=== PATIENT | female | born 1955 | race African-American/Black ===

== ENCOUNTER 2018-03-25 00:39 | Inpatient (IN) | payer MEDICARE, MEDICAID ==
[~2018-03-25] VITALS: Ht 160 cm; Wt 74.8 kg
[~2018-03-25 00:39] MED LIST: AMLO10TA80 PO; CALC1TAB17 PO; CLON0.2T PO; GLYB5TAB7 PO; IBUP-2030 PO; SULF-165 PO; TRIA115C TP
[2018-03-25] MEDS ORDERED: IPRATROPIUM BROMIDE (0.02%) 0.5MG/2.5ML NEB HHN STA (00:43)
[2018-03-25] MEDS ORDERED: METHYLPREDNISOLONE SOD SUCC 125 MG/2 ML VIAL IV STA (00:43)
[2018-03-25] MEDS ORDERED: ALBUTEROL (0.083%) 2.5MG/3ML NEB HHN STA (00:43)
[2018-03-25] MEDS ORDERED: LEVOFLOXACIN 750MG PREMIX 150 ML IV ONE (00:45)
[2018-03-25] MEDS ORDERED: NITROGLYCERIN OINT 1GM/INCH UDPKT TD ONE (00:45)
[2018-03-25] MEDS ORDERED: MAGNESIUM 2 G PREMIX 50 ML IV ONE (00:45)
[2018-03-25] MEDS ORDERED: ASPIRIN 81MG TABLET PO ONE (00:45)
[2018-03-25 01:45] LABS: BASOPHILS % 0.5 % (0.0-2.0); EOSINOPHILS % 1.3 % (0.0-5.0); HEMATOCRIT. 33.5 % (36.0-48.0); MEAN CORPUSCULAR HEMOGLOBIN 29.7 pg (28.0-32.0); MEAN CORPUSCULAR VOLUME 90.9 fL (81.0-99.0); MEAN PLATELET VOLUME 7.9 fl (7.4-10.4); NEUTROPHILS % 68.2 % (40.0-76.0); PLATELET 308 x1000/uL (130-400); RED BLOOD CELL COUNT 3.69 mill/uL (4.2-5.4); RED CELL DISTRIBUTION WIDTH 18.2 % (11.6-14.6)
[2018-03-25 01:49] LABS: INR 1.2
[2018-03-25 01:52] LABS: BG BASE EXCESS -5.2 mmol/L (-2.0-2.0); BG DEOXYHEMOGLOBIN 3.2 % (0.0-5.0); BG FRACTION INSPIRED OXYGEN 40; BG HCO3 ACT 19.1 mmol/L (22.0-26.0); BG METHEMOGLOBIN 0.2 % (0.0-1.5); BG OXYHEMOGLOBIN 94.6 % (94.0-97.0); BG PH 7.381 (7.350-7.450); BG SAMPLE SITE LEFT RADIAL; BG TOTAL HEMOGLOBIN 11.4 g/dL (12.0-18.0); BG VENT MODE MASK - BIPAP; BG VENT RATE 20 set
[2018-03-25 01:53] LABS: CHLORIDE 102 mEq/L (98-107)
[2018-03-25 01:57] LABS: ETHANOL BLOOD < 10 mg/dL
[2018-03-25] MEDS ORDERED: MORPHINE SULFATE 4 MG/ML CPJ (NOT FOR IM USE) IV PRN (08:00)
[2018-03-25] MEDS ORDERED: HYDROCODONE/ACETAMINOPHEN 5/325MG TABLET PO PRN (08:00)
[2018-03-25] MEDS ORDERED: ACETAMINOPHEN 650MG/20.3ML UDC GT PRN (08:00)
[2018-03-25] MEDS ORDERED: GUAIFENESIN 200MG/10ML SUGAR FREE UDC PO PRN (08:00)
[2018-03-25] MEDS ORDERED: IPRATROPIUM/ALBUTEROL 0.5-3(2.5)MG/3ML NEB INH PRN (08:00)
[2018-03-25] MEDS ORDERED: ACETAMINOPHEN 650MG SUPP PR PRN (08:00)
[2018-03-25] MEDS ORDERED: DIPHENHYDRAMINE 50MG/ML VIAL IV PRN (08:00)
[2018-03-25] MEDS ORDERED: MAGNESIUM/ALUMINUM HYDROXIDE/SIMETHICONE 30ML UDC PO PRN (08:00)
[2018-03-25] MEDS ORDERED: LEVOFLOXACIN 500MG PREMIX 100 ML IV SCH (08:00)
[2018-03-25] MEDS ORDERED: DOCUSATE SODIUM 100MG CAPSULE PO PRN (08:00)
[2018-03-25] MEDS ORDERED: ACETAMINOPHEN 325MG TABLET PO PRN (08:00)
[2018-03-25] MEDS ORDERED: ONDANSETRON HCL 4MG/2ML VIAL IV PRN (08:00)
[2018-03-25] MEDS ORDERED: NA PHOS,M-B/NA PHOS,DI-BA ENEMA 118ML PR PRN (08:00)
[2018-03-25] MEDS: CLONIDINE 0.1MG TABLET PO PRN (08:53)
[2018-03-25 10:10] VITALS: BP 179/78
[2018-03-25] MEDS ORDERED: ENOXAPARIN 40MG/0.4ML SYR SUBCUT SCH (10:19)
[2018-03-25] MEDS ORDERED: ASPI-1159 PO (10:27)
[2018-03-25] MEDS ORDERED: CINA30 PO (10:27)
[2018-03-25] MEDS ORDERED: SEVE800T8 PO (10:27)
[2018-03-25 10:30] VITALS: BP 179/78
[2018-03-25 12:00] VITALS: BP 173/81
[2018-03-25] MEDS: NIFEDIPINE XL 30MG TAB PO SCH (12:15)
[2018-03-25] MEDS: DOCUSATE SODIUM 100MG CAPSULE PO SCH ×2 (12:15→18:27)
[2018-03-25] MEDS: ENOXAPARIN 30MG/0.3ML SYR SUBCUT SCH (12:30)
[2018-03-25] MEDS: SEVELAMER CARBONATE 800 MG TABLET PO SCH ×2 (13:10→18:27)
[2018-03-25] MEDS: IPRATROPIUM/ALBUTEROL 0.5-3(2.5)MG/3ML NEB INH SCH ×2 (13:40→20:20)
[2018-03-25] MEDS: SODIUM CHLORIDE 0.9% INJ 3ML FLUSH IVF SCH ×2 (15:22→22:56)
[2018-03-25 16:00] VITALS: BP 166/70
[2018-03-25 20:00] VITALS: BP 178/95
[2018-03-25] MEDS: CLONIDINE 0.1MG TABLET PO SCH (22:56)
[2018-03-26] VITALS: BP 176/80
[2018-03-26] MEDS: IPRATROPIUM/ALBUTEROL 0.5-3(2.5)MG/3ML NEB INH SCH ×5 (02:15→21:45)
[2018-03-26 04:00] VITALS: BP 165/78
[2018-03-26] MEDS: CLONIDINE 0.1MG TABLET PO SCH (04:16)
[2018-03-26] MEDS: SODIUM CHLORIDE 0.9% INJ 3ML FLUSH IVF SCH ×3 (04:16→21:18)
[2018-03-26 07:49] LABS: BG BASE EXCESS -3.2 mmol/L (-2.0-2.0); BG CARBOXYHEMOGLOBIN 0.4 % (0.5-1.5); BG FRACTION INSPIRED OXYGEN 28; BG HCO3 ACT 21.1 mmol/L (22.0-26.0); BG METHEMOGLOBIN 0.3 % (0.0-1.5); BG OXYHEMOGLOBIN 95.3 % (94.0-97.0); BG PCO2 35.3 mmHg (35.0-45.0); BG PH 7.395 (7.350-7.450); BG PO2 85.5 mmHg (75.0-100.0); BG SAMPLE SITE LEFT BRACHIAL; BG VENT MODE NASAL CANNULA
[2018-03-26 08:00] VITALS: BP 154/74
[2018-03-26 08:03] LABS: CLARITY URINE CLOUDY (CLEAR); COLOR URINE YELLOW (YELLOW); KETONES URINE NEGATIVE (NEGATIVE); LEUKOCYTE ESTERASE URINE TRACE (NEGATIVE); NITRITE URINE NEGATIVE (NEGATIVE); OCCULT BLOOD URINE TRACE (NEGATIVE); PROTEIN URINE 3+ (NEGATIVE); SPECIFIC GRAVITY URINE 1.015 (1.005-1.030); UROBILINOGEN URINE 0.2 E.U./dL (0.2-1.0)
[2018-03-26 08:18] LABS: BASOPHILS % 0.4 % (0.0-2.0); EOSINOPHILS % 0.5 % (0.0-5.0); HEMATOCRIT. 32.6 % (36.0-48.0); HEMOGLOBIN. 10.5 g/dL (12.0-16.0); LYMPHOCYTES % 25.8 % (20.0-50.0); MEAN CORPUSCULAR HEMOGLOBIN 29.3 pg (28.0-32.0); MEAN CORPUSCULAR VOLUME 91.3 fL (81.0-99.0); NEUTROPHILS % 65.3 % (40.0-76.0); PLATELET 238 x1000/uL (130-400); RED BLOOD CELL COUNT 3.57 mill/uL (4.2-5.4); RED CELL DISTRIBUTION WIDTH 18.7 % (11.6-14.6)
[2018-03-26 08:58] LABS: CHLORIDE 108 mEq/L (98-107)
[2018-03-26] MEDS: DOCUSATE SODIUM 100MG CAPSULE PO SCH ×2 (09:08→16:35)
[2018-03-26] MEDS: SEVELAMER CARBONATE 800 MG TABLET PO SCH ×2 (09:08→13:19)
[2018-03-26] MEDS: ASPIRIN 81MG TABLET PO SCH (09:09)
[2018-03-26] MEDS: NIFEDIPINE XL 30MG TAB PO SCH (09:09)
[2018-03-26] MEDS: FOLIC ACID/VITAMIN B COMP W-C TABLET PO SCH (09:09)
[2018-03-26] MEDS: ENOXAPARIN 30MG/0.3ML SYR SUBCUT SCH (09:10)
[2018-03-26 09:11] LABS: PHOSPHORUS 3.8 mg/dL (2.5-4.9)
[2018-03-26 09:12] LABS: HDL CHOLESTEROL 59 mg/dL (40-59)
[2018-03-26 09:13] LABS: LDL CHOLESTEROL 64 mg/dL (5-100)
[2018-03-26 09:15] LABS: *BARBITURATES SCREEN URINE NEGATIVE (NEGATIVE); *BENZODIAZEPINES SCREEN URINE NEGATIVE (NEGATIVE); *COCAINE SCREEN URINE NEGATIVE (NEGATIVE); METHADONE URINE SCREEN NEGATIVE (NEGATIVE); OPIATES URINE SCREEN NEGATIVE (NEGATIVE); PHENCYCLIDINE URINE SCREEN NEGATIVE (NEGATIVE)
[2018-03-26 09:16] LABS: *AMPHETAMINES SCREEN URINE NEGATIVE (NEGATIVE); CANNABINOID URINE SCREEN NEGATIVE (NEGATIVE)
[2018-03-26 12:00] VITALS: BP 169/76
[2018-03-26] MEDS: CLONIDINE 0.1MG TABLET PO PRN (13:22)
[2018-03-26] MEDS ORDERED: NIFE60TA78 PO (13:24)
[2018-03-26] MEDS ORDERED: NIFEDIPINE XL 30MG TAB PO SCH (13:30)
[2018-03-26] MEDS ORDERED: CINACALCET HCL 30MG TABLET PO SCH (17:00)
[2018-03-26 17:23] VITALS: BP 143/71
[2018-03-26 20:00] VITALS: BP 174/83
[2018-03-26] MEDS ORDERED: CLONIDINE 0.2MG TABLET PO SCH (21:00)
[2018-03-26] MEDS ORDERED: LEVOFLOXACIN 500MG TABLET PO SCH (22:00)
[2018-03-26] MEDS ORDERED: LEVOFLOXACIN 250MG PREMIX 50 ML IV SCH (23:00)
[2018-03-27] VITALS: BP 152/76
[2018-03-27] MEDS: IPRATROPIUM/ALBUTEROL 0.5-3(2.5)MG/3ML NEB INH SCH ×4 (00:59→12:44)
[2018-03-27 04:00] VITALS: BP 161/78
[2018-03-27] MEDS: SODIUM CHLORIDE 0.9% INJ 3ML FLUSH IVF SCH (04:25)
[2018-03-27] MEDS: CLONIDINE 0.1MG TABLET PO PRN (04:25)
[2018-03-27 06:49] LABS: EOSINOPHILS % 1.7 % (0.0-5.0); HEMATOCRIT. 29.7 % (36.0-48.0); HEMOGLOBIN. 9.7 g/dL (12.0-16.0); MEAN CORPUSCULAR HEMOGLOBIN 29.3 pg (28.0-32.0); MONOCYTES % 7.7 % (2.0-8.0); NEUTROPHILS % 63.6 % (40.0-76.0); PLATELET 222 x1000/uL (130-400); RED CELL DISTRIBUTION WIDTH 18.4 % (11.6-14.6)
[2018-03-27 07:22] LABS: CHLORIDE 104 mEq/L (98-107)
[2018-03-27 07:28] LABS: PHOSPHORUS 4.1 mg/dL (2.5-4.9)
[2018-03-27] MEDS ORDERED: LEVO500T2 PO (07:33)
[2018-03-27 08:00] VITALS: BP 146/73
[2018-03-27] MEDS ORDERED: NIFEDIPINE XL 60MG TAB PO SCH (09:00)
[2018-03-27] MEDS ORDERED: CLONIDINE 0.1MG TABLET PO SCH ×2 (09:00→11:00)
[2018-03-27] MEDS: ENOXAPARIN 30MG/0.3ML SYR SUBCUT SCH (09:19)
[2018-03-27] MEDS: ASPIRIN 81MG TABLET PO SCH (09:19)
[2018-03-27] MEDS: FOLIC ACID/VITAMIN B COMP W-C TABLET PO SCH (09:19)
[2018-03-27] MEDS: DOCUSATE SODIUM 100MG CAPSULE PO SCH (09:20)
[2018-03-27 11:28] LABS: T4 FREE 1.19 ng/dL (0.76-1.46)
[2018-03-27 12:00] VITALS: BP_SYST 154; BP_DIAS 77; BP_DIAS 99
[2018-03-27 13:37] VITALS: BP 154/77
== END 2018-03-27 14:31 | disposition home or self-care (01) | DRG 291 ==
LOC: ER 00:55 → 7WST 03:05 → EDBEDREQSVC 08:57 → ENRESERV 09:05
PROVIDERS: ADMIT Family Medicine; ATTEND Family Medicine
PROC: 5A1D70Z Performance of Urinary Filtration, Intermittent, Less than 6 Hours Per Day (ICD-10-PCS; principal; 2018-03-25)
PROC: 5A1D70Z Performance of Urinary Filtration, Intermittent, Less than 6 Hours Per Day (ICD-10-PCS; 2018-03-27)
DX: I13.2 Hypertensive heart and chronic kidney disease with heart failure and with stage 5 chronic kidney disease, or end stage renal disease (principal); I50.33 Acute on chronic diastolic (congestive) heart failure; J96.00 Acute respiratory failure, unspecified whether with hypoxia or hypercapnia; J18.9 Pneumonia, unspecified organism; E44.0 Moderate protein-calorie malnutrition; E87.2 Acidosis; N18.6 End stage renal disease; E11.22 Type 2 diabetes mellitus with diabetic chronic kidney disease; J44.0 Chronic obstructive pulmonary disease with (acute) lower respiratory infection; N25.81 Secondary hyperparathyroidism of renal origin; I69.354 Hemiplegia and hemiparesis following cerebral infarction affecting left non-dominant side; I69.351 Hemiplegia and hemiparesis following cerebral infarction affecting right dominant side; E83.52 Hypercalcemia; E87.6 Hypokalemia; D63.8 Anemia in other chronic diseases classified elsewhere; E78.5 Hyperlipidemia, unspecified; E83.39 Other disorders of phosphorus metabolism; Z82.49 Family history of ischemic heart disease and other diseases of the circulatory system; Z87.891 Personal history of nicotine dependence; Z99.2 Dependence on renal dialysis; Z90.49 Acquired absence of other specified parts of digestive tract; Z88.8 Allergy status to other drugs, medicaments and biological substances; Z79.899 Other long term (current) drug therapy; Z68.29 Body mass index [BMI] 29.0-29.9, adult
CPT/HCPCS: 36415; 36600; 71045; 80048; 80053; 80061; 80305; 81003; 82375; 82550; 82805; 83036; 83605; 83690; 83735; 83880; 84100; 84439; 84443; 84484; 85025; 85610; 87040; 87804; 93005; 93306; 93970; 94640; 94660; 96361; 96365; 96366; 99285; G0482; J1650; J1956; J2930; J3475; J7030; J7611; J7620

== ENCOUNTER 2018-06-09 19:18 | Emergency (ER) | payer MEDICARE, MEDICAID ==
[~2018-06-09] VITALS: Ht 160 cm; Wt 73.0 kg
[~2018-06-09 19:18] MED LIST changes: -AMLO10TA80 PO; +ASPI-1159 PO; -CALC1TAB17 PO; +CINA30 PO; -GLYB5TAB7 PO; -IBUP-2030 PO; +LEVO500T2 PO; +NIFE60TA78 PO; +SEVE800T8 PO; -SULF-165 PO; -TRIA115C TP
[2018-06-09] MEDS ORDERED: ACETAMINOPHEN 325MG TABLET PO ONE (23:45)
[2018-06-10 02:26] VITALS: BP 137/59
== END 2018-06-10 02:46 | disposition home or self-care (01) ==
LOC: ER 19:18
DX: S80.12XA Contusion of left lower leg, initial encounter (principal); M25.561 Pain in right knee; E11.22 Type 2 diabetes mellitus with diabetic chronic kidney disease; N18.9 Chronic kidney disease, unspecified; W01.0XXA Fall on same level from slipping, tripping and stumbling without subsequent striking against object, initial encounter; Y93.9 Activity, unspecified; Y92.9 Unspecified place or not applicable; Z79.4 Long term (current) use of insulin; Z79.82 Long term (current) use of aspirin; Z86.73 Personal history of transient ischemic attack (TIA), and cerebral infarction without residual deficits
CPT/HCPCS: 73562; 73590; 99284

== ENCOUNTER 2018-06-14 18:40 | Inpatient (IN) | payer MEDICARE, MEDICAID ==
[~2018-06-14] VITALS: Ht 160 cm; Wt 76.2 kg
[2018-06-14] MEDS ORDERED: SODIUM CHLORIDE 0.9% 1,000 ML IV ONE (22:57)
[2018-06-14] MEDS ORDERED: VANCOMYCIN 1 G PREMIX 200 ML IV ONE (23:00)
[2018-06-14] MEDS ORDERED: PIPERACILLIN/TAZ 3.375G PREMIX 50 ML IV ONE (23:00)
[2018-06-14 23:30] LABS: BASOPHILS % 1.2 % (0.0-2.0); EOSINOPHILS % 1.3 % (0.0-5.0); HEMATOCRIT. 31.7 % (36.0-48.0); HEMOGLOBIN. 10.4 g/dL (12.0-16.0); LYMPHOCYTES % 28.9 % (20.0-50.0); MEAN CORPUSCULAR HEMOGLOBIN 28.9 pg (28.0-32.0); MEAN CORPUSCULAR VOLUME 87.7 fL (81.0-99.0); MEAN PLATELET VOLUME 8.7 fl (7.4-10.4); MONOCYTES % 6.3 % (2.0-8.0); NEUTROPHILS % 62.3 % (40.0-76.0); PLATELET 252 x1000/uL (130-400); RED BLOOD CELL COUNT 3.61 mill/uL (4.2-5.4); RED CELL DISTRIBUTION WIDTH 17.1 % (11.6-14.6)
[2018-06-14 23:34] LABS: CHLORIDE 95 mEq/L (98-107)
[2018-06-15] VITALS (10 sets, daily range): BP systolic 129–178; BP diastolic 72–97
[2018-06-15] MEDS ORDERED: ASPIRIN 81MG TABLET PO ONE (01:15)
[2018-06-15] MEDS ORDERED: LOSA25TA12 MT (08:28)
[2018-06-15] MEDS ORDERED: ACETAMINOPHEN 325MG TABLET PO PRN (09:00)
[2018-06-15] MEDS ORDERED: DOCUSATE SODIUM 100MG CAPSULE PO PRN (09:00)
[2018-06-15] MEDS ORDERED: ACETAMINOPHEN 650MG SUPP PR PRN (09:00)
[2018-06-15] MEDS ORDERED: NA PHOS,M-B/NA PHOS,DI-BA ENEMA 118ML PR PRN (09:00)
[2018-06-15] MEDS ORDERED: DIPHENHYDRAMINE 50MG/ML VIAL IV PRN (09:00)
[2018-06-15] MEDS ORDERED: ONDANSETRON HCL 4MG/2ML VIAL IV PRN (09:00)
[2018-06-15] MEDS ORDERED: HYDROCODONE/ACETAMINOPHEN 5/325MG TABLET PO PRN (09:00)
[2018-06-15] MEDS ORDERED: LORAZEPAM 2MG/ML CPJ IV PRN (09:00)
[2018-06-15] MEDS ORDERED: MAGNESIUM/ALUMINUM HYDROXIDE/SIMETHICONE 30ML UDC PO PRN (09:00)
[2018-06-15] MEDS ORDERED: ACETAMINOPHEN 650MG/20.3ML UDC GT PRN (09:00)
[2018-06-15] MEDS ORDERED: CLONIDINE 0.1MG TABLET PO PRN (09:00)
[2018-06-15] MEDS ORDERED: IPRATROPIUM/ALBUTEROL 0.5-3(2.5)MG/3ML NEB INH PRN (09:00)
[2018-06-15] MEDS ORDERED: ENOXAPARIN 80MG/0.8ML SYR SUBCUT NR (10:00)
[2018-06-15] MEDS ORDERED: CLONIDINE 0.2MG TABLET PO PRN (10:15)
[2018-06-15 11:00] LABS: BASOPHILS % 0.8 % (0.0-2.0); HEMOGLOBIN. 10.2 g/dL (12.0-16.0); LYMPHOCYTES % 23.9 % (20.0-50.0); MEAN CORPUSCULAR VOLUME 87.9 fL (81.0-99.0); MEAN PLATELET VOLUME 8.9 fl (7.4-10.4); MONOCYTES % 6.6 % (2.0-8.0); NEUTROPHILS % 67.7 % (40.0-76.0); PLATELET 232 x1000/uL (130-400); RED BLOOD CELL COUNT 3.53 mill/uL (4.2-5.4); RED CELL DISTRIBUTION WIDTH 17.2 % (11.6-14.6)
[2018-06-15] MEDS: NIFEDIPINE XL 30MG TAB PO SCH ×2 (11:00→20:43)
[2018-06-15] MEDS: NITROGLYCERIN OINT 1GM/INCH UDPKT TD SCH ×5 (11:00→23:14)
[2018-06-15 11:10] LABS: CHLORIDE 94 mEq/L (98-107)
[2018-06-15 11:18] LABS: LDL CHOLESTEROL 73 mg/dL (5-100)
[2018-06-15 11:21] LABS: HDL CHOLESTEROL 40 mg/dL (40-59)
[2018-06-15] MEDS ORDERED: SEVELAMER CARBONATE 800 MG TABLET PO SCH (17:20)
[2018-06-15] MEDS: SEVELAMER CARBONATE 800 MG TABLET PO SCH (18:19)
[2018-06-15] MEDS: CINACALCET HCL 30MG TABLET PO SCH (18:19)
[2018-06-15] MEDS: PANTOPRAZOLE SODIUM 40 MG/VIAL IV SCH (18:19)
[2018-06-15] MEDS: NICOTINE 14MG PATCH TD SCH (18:19)
[2018-06-15] MEDS: IPRATROPIUM/ALBUTEROL 0.5-3(2.5)MG/3ML NEB HHN SCH (20:41)
[2018-06-15] MEDS: BUDESONIDE 0.5MG/2ML NEB HHN SCH (20:42)
[2018-06-15] MEDS: CARVEDILOL 3.125 MG TABLET PO SCH (20:44)
[2018-06-16] VITALS (18 sets, daily range): BP systolic 109–160; BP diastolic 49–88
[2018-06-16] MEDS: IPRATROPIUM/ALBUTEROL 0.5-3(2.5)MG/3ML NEB HHN SCH ×3 (00:48→19:54)
[2018-06-16] MEDS: NITROGLYCERIN OINT 1GM/INCH UDPKT TD SCH ×3 (03:02→10:51)
[2018-06-16] MEDS: SEVELAMER CARBONATE 800 MG TABLET PO SCH ×3 (07:20→19:00)
[2018-06-16] MEDS: BUDESONIDE 0.5MG/2ML NEB HHN SCH ×2 (07:55→19:56)
[2018-06-16 08:11] LABS: BASOPHILS % 1.2 % (0.0-2.0); EOSINOPHILS % 1.9 % (0.0-5.0); HEMOGLOBIN. 9.7 g/dL (12.0-16.0); LYMPHOCYTES % 31.1 % (20.0-50.0); MEAN CORPUSCULAR HEMOGLOBIN 28.5 pg (28.0-32.0); MEAN CORPUSCULAR VOLUME 88.3 fL (81.0-99.0); MEAN PLATELET VOLUME 8.7 fl (7.4-10.4); MONOCYTES % 6.8 % (2.0-8.0); PLATELET 219 x1000/uL (130-400)
[2018-06-16 08:36] LABS: CHLORIDE 96 mEq/L (98-107)
[2018-06-16] MEDS: NIFEDIPINE XL 30MG TAB PO SCH ×2 (08:52→21:35)
[2018-06-16] MEDS: FOLIC ACID/VITAMIN B COMP W-C TABLET PO SCH (08:52)
[2018-06-16] MEDS: PANTOPRAZOLE SODIUM 40 MG/VIAL IV SCH ×2 (08:52→16:47)
[2018-06-16] MEDS: CINACALCET HCL 30MG TABLET PO SCH (08:53)
[2018-06-16] MEDS: CARVEDILOL 3.125 MG TABLET PO SCH (08:53)
[2018-06-16] MEDS: NICOTINE 14MG PATCH TD SCH (08:53)
[2018-06-16] MEDS ORDERED: ASPIRIN 325MG EC TABLET PO SCH (09:00)
[2018-06-16] MEDS: ASPIRIN 81MG EC TABLET PO SCH (09:03)
[2018-06-16 09:12] LABS: LDL CHOLESTEROL 62 mg/dL (5-100)
[2018-06-16 09:17] LABS: HDL CHOLESTEROL 42 mg/dL (40-59)
[2018-06-16] MEDS ORDERED: IOHEXOL-300 100 ML BOTTLE ONE ×4 (11:46→12:47)
[2018-06-16] MEDS ORDERED: LIDOCAINE HCL 1% 20ML VIAL (Pyxis) INJ ONE (11:46)
[2018-06-16] MEDS ORDERED: FENTANYL CITRATE/PF 50MCG/ML 2ML VIAL ONE (11:54)
[2018-06-16] MEDS ORDERED: MIDAZOLAM HCL 2 MG/2 ML VIAL ONE ×2 (11:54→14:36)
[2018-06-16] MEDS ORDERED: DOPAMINE 400MG PREMIX 250 ML IV ONE ×2 (13:04→14:25)
[2018-06-16] MEDS ORDERED: IODIXANOL 320MG/ML 100 ML BOTTLE IV ONE (13:24)
[2018-06-16] MEDS ORDERED: PHENYLEPHRINE 10MG in DEXT 5% WATER 250ML IV PRN (13:30)
[2018-06-16] MEDS ORDERED: NICARDIPINE 100MCG/ML 10ML VIAL (CATH LAB) IV ONE (14:22)
[2018-06-16] MEDS ORDERED: NITROGLYCERIN 50MCG/ML 10ML VIAL (CATH LAB) IV ONE (14:22)
[2018-06-16 14:24] LABS: BASOPHILS % 1.2 % (0.0-2.0); HEMATOCRIT. 29.4 % (36.0-48.0); HEMOGLOBIN. 9.7 g/dL (12.0-16.0); LYMPHOCYTES % 24.7 % (20.0-50.0); MEAN CORPUSCULAR HEMOGLOBIN 28.7 pg (28.0-32.0); MEAN CORPUSCULAR VOLUME 87.3 fL (81.0-99.0); MEAN PLATELET VOLUME 8.5 fl (7.4-10.4); MONOCYTES % 5.9 % (2.0-8.0); NEUTROPHILS % 66.2 % (40.0-76.0); PLATELET 261 x1000/uL (130-400); RED BLOOD CELL COUNT 3.37 mill/uL (4.2-5.4); RED CELL DISTRIBUTION WIDTH 17.4 % (11.6-14.6)
[2018-06-16 14:34] LABS: CHLORIDE 89 mEq/L (98-107)
[2018-06-16 14:40] LABS: INR 1.5; PROTHROMBIN TIME 15.4 sec (9.4-11.6)
[2018-06-16] MEDS ORDERED: HEPARIN SODIUM 1,000 UNIT/1ML VIAL IV ONE (14:58)
[2018-06-16 15:30] LABS: PARTIAL THROMBOPLASTIN TIME 103.5 sec (23.4-31.0)
[2018-06-16] MEDS ORDERED: ATROPINE SULFATE 1MG/10ML SYR IV PRN (15:30)
[2018-06-16] MEDS ORDERED: ACETAMINOPHEN 325MG TABLET PO PRN (15:30)
[2018-06-16] MEDS ORDERED: CLOPIDOGREL 75MG TABLET ONE (15:43)
[2018-06-16] MEDS ORDERED: MORPHINE SULFATE 4 MG/ML CPJ (NOT FOR IM USE) IV PRN (16:15)
[2018-06-16 16:16] LABS: BG BASE EXCESS 0.2 mmol/L (-2.0-2.0); BG CARBOXYHEMOGLOBIN 0.3 % (0.5-1.5); BG DEOXYHEMOGLOBIN 8.8 % (0.0-5.0); BG FRACTION INSPIRED OXYGEN 21; BG HCO3 ACT 23.3 mmol/L (22.0-26.0); BG METHEMOGLOBIN 0.2 % (0.0-1.5); BG OXYGEN SATURATION 91.2 % (92.0-98.5); BG OXYHEMOGLOBIN 90.7 % (94.0-97.0); BG PCO2 32.1 mmHg (35.0-45.0); BG PH 7.479 (7.350-7.450); BG PO2 62.6 mmHg (75.0-100.0); BG SAMPLE SITE A-LINE; BG TOTAL HEMOGLOBIN 9.8 g/dL (12.0-18.0); BG VENT MODE ROOM AIR
[2018-06-16] MEDS ORDERED: HYDROCODONE/ACETAMINOPHEN 5/325MG TABLET PO PRN (16:30)
[2018-06-16] MEDS: MORPHINE SULFATE 4 MG/ML CPJ (NOT FOR IM USE) IV PRN (16:47)
[2018-06-16 19:02] LABS: CHLORIDE 91 mEq/L (98-107)
[2018-06-16] MEDS ORDERED: CHLORHEXIDINE GLUCONATE 4% EXTERNAL USE TOP SCH (21:00)
[2018-06-16] MEDS: ATORVASTATIN CALCIUM 40MG TABLET PO SCH (21:35)
[2018-06-17] VITALS (28 sets, daily range): BP systolic 129–165; BP diastolic 58–88
[2018-06-17] MEDS: MORPHINE SULFATE 4 MG/ML CPJ (NOT FOR IM USE) IV PRN (00:02)
[2018-06-17] MEDS: IPRATROPIUM/ALBUTEROL 0.5-3(2.5)MG/3ML NEB HHN SCH ×2 (02:55→09:39)
[2018-06-17] MEDS ORDERED: CHLORHEXIDINE GLUCONATE 4% EXTERNAL USE TOP SCH (05:00)
[2018-06-17 06:12] LABS: BASOPHILS % 0.7 % (0.0-2.0); EOSINOPHILS % 0.8 % (0.0-5.0); HEMATOCRIT. 26.4 % (36.0-48.0); HEMOGLOBIN. 8.8 g/dL (12.0-16.0); LYMPHOCYTES % 19.6 % (20.0-50.0); MEAN CORPUSCULAR HEMOGLOBIN 29.2 pg (28.0-32.0); MEAN CORPUSCULAR VOLUME 87.5 fL (81.0-99.0); MEAN PLATELET VOLUME 8.8 fl (7.4-10.4); MONOCYTES % 7.1 % (2.0-8.0); NEUTROPHILS % 71.8 % (40.0-76.0); PLATELET 213 x1000/uL (130-400); RED BLOOD CELL COUNT 3.02 mill/uL (4.2-5.4); RED CELL DISTRIBUTION WIDTH 17.2 % (11.6-14.6)
[2018-06-17 06:25] LABS: PHOSPHORUS 7.3 mg/dL (2.5-4.9)
[2018-06-17] MEDS: NICOTINE 14MG PATCH TD SCH (09:00)
[2018-06-17] MEDS: BUDESONIDE 0.5MG/2ML NEB HHN SCH ×2 (09:40→22:24)
[2018-06-17] MEDS: PANTOPRAZOLE SODIUM 40 MG/VIAL IV SCH ×2 (12:00→17:57)
[2018-06-17] MEDS: ASPIRIN 81MG EC TABLET PO SCH (12:00)
[2018-06-17] MEDS: NIFEDIPINE XL 30MG TAB PO SCH ×2 (12:00→21:06)
[2018-06-17] MEDS: FOLIC ACID/VITAMIN B COMP W-C TABLET PO SCH (12:01)
[2018-06-17] MEDS: CLOPIDOGREL 75MG TABLET PO SCH (12:01)
[2018-06-17] MEDS: CINACALCET HCL 30MG TABLET PO SCH (12:02)
[2018-06-17] MEDS: SEVELAMER CARBONATE 800 MG TABLET PO SCH ×2 (12:02→17:57)
[2018-06-17] MEDS: ATORVASTATIN CALCIUM 40MG TABLET PO SCH (21:06)
[2018-06-17] MEDS: EPOETIN ALFA 4000UNITS/ML VIAL SUBCUT SCH (21:06)
[2018-06-17] MEDS: IPRATROPIUM/ALBUTEROL 0.5-3(2.5)MG/3ML NEB HHN PRN (22:25)
[2018-06-18] VITALS (24 sets, daily range): BP systolic 106–151; BP diastolic 45–82
[2018-06-18 05:18] LABS: BASOPHILS % 1.1 % (0.0-2.0); EOSINOPHILS % 4.1 % (0.0-5.0); HEMATOCRIT. 30.1 % (36.0-48.0); HEMOGLOBIN. 9.6 g/dL (12.0-16.0); LYMPHOCYTES % 16.4 % (20.0-50.0); MEAN CORPUSCULAR HEMOGLOBIN 28.2 pg (28.0-32.0); MEAN CORPUSCULAR VOLUME 88.3 fL (81.0-99.0); MEAN PLATELET VOLUME 8.2 fl (7.4-10.4); MONOCYTES % 10.3 % (2.0-8.0); NEUTROPHILS % 68.1 % (40.0-76.0); PLATELET 245 x1000/uL (130-400); RED BLOOD CELL COUNT 3.41 mill/uL (4.2-5.4); RED CELL DISTRIBUTION WIDTH 17.5 % (11.6-14.6)
[2018-06-18 05:42] LABS: PHOSPHORUS 4.5 mg/dL (2.5-4.9)
[2018-06-18] MEDS: GUAIFENESIN 200MG/10ML SUGAR FREE UDC PO PRN (08:44)
[2018-06-18] MEDS: PANTOPRAZOLE SODIUM 40 MG/VIAL IV SCH ×2 (08:44→16:42)
[2018-06-18] MEDS: NIFEDIPINE XL 30MG TAB PO SCH ×2 (08:45→21:28)
[2018-06-18] MEDS: CLOPIDOGREL 75MG TABLET PO SCH (08:45)
[2018-06-18] MEDS: ASPIRIN 81MG EC TABLET PO SCH (08:45)
[2018-06-18] MEDS: SEVELAMER CARBONATE 800 MG TABLET PO SCH ×3 (08:45→16:42)
[2018-06-18] MEDS: FOLIC ACID/VITAMIN B COMP W-C TABLET PO SCH (08:45)
[2018-06-18] MEDS: CINACALCET HCL 30MG TABLET PO SCH (08:45)
[2018-06-18] MEDS: NICOTINE 14MG PATCH TD SCH (08:57)
[2018-06-18] MEDS: IPRATROPIUM/ALBUTEROL 0.5-3(2.5)MG/3ML NEB HHN PRN (10:00)
[2018-06-18] MEDS: BUDESONIDE 0.5MG/2ML NEB HHN SCH (10:00)
[2018-06-18] MEDS: LACTULOSE 20G/30ML UDC PO PRN (12:50)
[2018-06-18] MEDS: DOCUSATE SODIUM 250MG CAPSULE PO SCH (12:54)
[2018-06-18] MEDS ORDERED: CARVEDILOL 3.125 MG TABLET PO SCH (21:00)
[2018-06-18] MEDS: ATORVASTATIN CALCIUM 40MG TABLET PO SCH (21:28)
[2018-06-19] VITALS (12 sets, daily range): BP systolic 121–151; BP diastolic 55–76
[2018-06-19 07:13] LABS: BASOPHILS % 0.8 % (0.0-2.0); EOSINOPHILS % 5.1 % (0.0-5.0); HEMATOCRIT. 27.7 % (36.0-48.0); HEMOGLOBIN. 8.9 g/dL (12.0-16.0); LYMPHOCYTES % 21.4 % (20.0-50.0); MEAN CORPUSCULAR HEMOGLOBIN 28.6 pg (28.0-32.0); MEAN CORPUSCULAR VOLUME 88.3 fL (81.0-99.0); MEAN PLATELET VOLUME 8.4 fl (7.4-10.4); MONOCYTES % 9.3 % (2.0-8.0); NEUTROPHILS % 63.4 % (40.0-76.0); PLATELET 216 x1000/uL (130-400); RED BLOOD CELL COUNT 3.13 mill/uL (4.2-5.4); RED CELL DISTRIBUTION WIDTH 17.5 % (11.6-14.6)
[2018-06-19 07:24] LABS: PHOSPHORUS 3.3 mg/dL (2.5-4.9)
[2018-06-19] MEDS: FOLIC ACID/VITAMIN B COMP W-C TABLET PO SCH (08:15)
[2018-06-19] MEDS: GUAIFENESIN 200MG/10ML SUGAR FREE UDC PO PRN (08:15)
[2018-06-19] MEDS: ASPIRIN 81MG EC TABLET PO SCH (08:15)
[2018-06-19] MEDS: CLOPIDOGREL 75MG TABLET PO SCH (08:15)
[2018-06-19] MEDS: CINACALCET HCL 30MG TABLET PO SCH (08:15)
[2018-06-19] MEDS: PANTOPRAZOLE SODIUM 40 MG/VIAL IV SCH ×2 (08:16→16:12)
[2018-06-19] MEDS: DOCUSATE SODIUM 250MG CAPSULE PO SCH (08:19)
[2018-06-19] MEDS: NICOTINE 14MG PATCH TD SCH (08:19)
[2018-06-19] MEDS: NIFEDIPINE XL 30MG TAB PO SCH ×2 (08:22→21:41)
[2018-06-19] MEDS ORDERED: CARVEDILOL 6.25 MG TABLET PO SCH (09:00)
[2018-06-19] MEDS: LOSARTAN POTASSIUM 50 MG TABLET PO SCH (11:39)
[2018-06-19] MEDS: HYDROCODONE/ACETAMINOPHEN 5/325MG TABLET PO PRN ×2 (16:13→21:54)
[2018-06-19] MEDS: ATORVASTATIN CALCIUM 40MG TABLET PO SCH (21:40)
[2018-06-19] MEDS: CARVEDILOL 12.5MG TABLET PO SCH (21:41)
[2018-06-20] VITALS (14 sets, daily range): BP systolic 127–165; BP diastolic 66–94
[2018-06-20 06:39] LABS: BASOPHILS % 0.9 % (0.0-2.0); EOSINOPHILS % 5.9 % (0.0-5.0); HEMATOCRIT. 27.5 % (36.0-48.0); HEMOGLOBIN. 8.9 g/dL (12.0-16.0); LYMPHOCYTES % 22.6 % (20.0-50.0); MEAN CORPUSCULAR HEMOGLOBIN 28.9 pg (28.0-32.0); MEAN CORPUSCULAR VOLUME 88.8 fL (81.0-99.0); MEAN PLATELET VOLUME 8.4 fl (7.4-10.4); MONOCYTES % 9.1 % (2.0-8.0); NEUTROPHILS % 61.5 % (40.0-76.0); PLATELET 215 x1000/uL (130-400); RED CELL DISTRIBUTION WIDTH 17.3 % (11.6-14.6)
[2018-06-20] MEDS: CLOPIDOGREL 75MG TABLET PO SCH (08:32)
[2018-06-20] MEDS: DOCUSATE SODIUM 250MG CAPSULE PO SCH (08:32)
[2018-06-20] MEDS: ASPIRIN 81MG EC TABLET PO SCH (08:32)
[2018-06-20] MEDS: CINACALCET HCL 30MG TABLET PO SCH (08:32)
[2018-06-20] MEDS: NICOTINE 14MG PATCH TD SCH (08:32)
[2018-06-20] MEDS: FOLIC ACID/VITAMIN B COMP W-C TABLET PO SCH (08:32)
[2018-06-20] MEDS: NIFEDIPINE XL 30MG TAB PO SCH ×2 (09:00→21:13)
[2018-06-20] MEDS: CARVEDILOL 12.5MG TABLET PO SCH ×2 (10:29→21:14)
[2018-06-20] MEDS: PANTOPRAZOLE SODIUM 40 MG/VIAL IV SCH ×2 (10:29→16:51)
[2018-06-20] MEDS: LACTULOSE 20G/30ML UDC PO PRN (13:16)
[2018-06-20] MEDS: LOSARTAN POTASSIUM 50 MG TABLET PO SCH (13:16)
[2018-06-20] MEDS ORDERED: LOSARTAN POTASSIUM 50 MG TABLET PO SCH (18:00)
[2018-06-20] MEDS: ATORVASTATIN CALCIUM 40MG TABLET PO SCH (21:13)
[2018-06-20] MEDS: EPOETIN ALFA 4000UNITS/ML VIAL SUBCUT SCH (21:13)
== END 2018-06-20 22:44 | DRG 246 ==
LOC: ER 19:04 → 3WST 06-15 01:14 → EDBEDREQDT 06-15 01:25 → EDBEDREQTM 06-15 01:25 → EDBEDREQ 06-15 01:25 → ENRESERV 06-15 07:30 → CVICU 06-16 16:00 → 3WST 06-18 16:18
PROVIDERS: ADMIT Internal Medicine; ATTEND Internal Medicine
PROC: 5A1D70Z Performance of Urinary Filtration, Intermittent, Less than 6 Hours Per Day (ICD-10-PCS; 2018-06-15)
PROC: 027137Z Dilation of Coronary Artery, Two Arteries with Four or More Drug-eluting Intraluminal Devices, Percutaneous Approach (ICD-10-PCS; principal; 2018-06-16)
PROC: 4A023N7 Measurement of Cardiac Sampling and Pressure, Left Heart, Percutaneous Approach (ICD-10-PCS; 2018-06-16)
PROC: B2111ZZ Fluoroscopy of Multiple Coronary Arteries using Low Osmolar Contrast (ICD-10-PCS; 2018-06-16)
PROC: 5A1D70Z Performance of Urinary Filtration, Intermittent, Less than 6 Hours Per Day (ICD-10-PCS; 2018-06-17)
DX: I21.4 Non-ST elevation (NSTEMI) myocardial infarction (principal); E43 Unspecified severe protein-calorie malnutrition; I50.43 Acute on chronic combined systolic (congestive) and diastolic (congestive) heart failure; J96.01 Acute respiratory failure with hypoxia; N18.6 End stage renal disease; I25.42 Coronary artery dissection; E87.1 Hypo-osmolality and hyponatremia; I13.2 Hypertensive heart and chronic kidney disease with heart failure and with stage 5 chronic kidney disease, or end stage renal disease; I69.354 Hemiplegia and hemiparesis following cerebral infarction affecting left non-dominant side; E78.00 Pure hypercholesterolemia, unspecified; E78.5 Hyperlipidemia, unspecified; F17.210 Nicotine dependence, cigarettes, uncomplicated; I25.10 Atherosclerotic heart disease of native coronary artery without angina pectoris; E11.22 Type 2 diabetes mellitus with diabetic chronic kidney disease; D63.8 Anemia in other chronic diseases classified elsewhere; J44.9 Chronic obstructive pulmonary disease, unspecified; I34.0 Nonrheumatic mitral (valve) insufficiency; R13.10 Dysphagia, unspecified; E83.39 Other disorders of phosphorus metabolism; Z90.49 Acquired absence of other specified parts of digestive tract; Z79.84 Long term (current) use of oral hypoglycemic drugs; Z82.49 Family history of ischemic heart disease and other diseases of the circulatory system; Z99.2 Dependence on renal dialysis; Z79.899 Other long term (current) drug therapy; Z79.82 Long term (current) use of aspirin; Z88.8 Allergy status to other drugs, medicaments and biological substances; Z87.01 Personal history of pneumonia (recurrent); Z68.29 Body mass index [BMI] 29.0-29.9, adult
CPT/HCPCS: 36415; 36600; 70450; 71045; 80048; 80053; 80061; 82040; 82375; 82550; 82553; 82805; 82962; 83605; 83690; 83735; 83880; 84100; 84439; 84443; 84481; 84484; 85025; 85347; 85610; 85730; 86850; 86900; 86920; 87040; 92928; 92929; 93005; 93306; 93454; 96365; 96366; 96368; 97162; 97164; 99291; C1725; C1726; C1769; C1874; C1887; C1893; C9113; J0885; J1265; J1644; J1650; J2250; J2270; J2370; J2543; J3010; J3370; J3490; J7030; J7060; J7620; J7626; Q9967

== ENCOUNTER 2018-06-20 22:45 | Inpatient (IN) | payer MEDICARE, MEDICAID ==
[~2018-06-20] VITALS: Ht 165.1 cm; Wt 75.7 kg
[~2018-06-20 22:45] MED LIST changes: +LOSA25TA12 MT
[2018-06-20 23:15] VITALS: BP 142/66
[2018-06-21] MEDS ORDERED: HYDROCODONE/ACETAMINOPHEN 5/325MG TABLET PO PRN
[2018-06-21] MEDS ORDERED: MAGNESIUM/ALUMINUM HYDROXIDE/SIMETHICONE 30ML UDC PO PRN
[2018-06-21] MEDS ORDERED: CLONIDINE 0.2MG TABLET PO PRN
[2018-06-21] MEDS ORDERED: ACETAMINOPHEN 650MG SUPP PR PRN
[2018-06-21] MEDS ORDERED: MORPHINE SULFATE 4 MG/ML CPJ (NOT FOR IM USE) IV PRN
[2018-06-21] MEDS ORDERED: CLONIDINE 0.1MG TABLET PO PRN
[2018-06-21] MEDS ORDERED: ONDANSETRON HCL 4MG TABLET PO PRN
[2018-06-21] MEDS ORDERED: GUAIFENESIN 200MG/10ML SUGAR FREE UDC PO PRN
[2018-06-21] MEDS ORDERED: DOCUSATE SODIUM 100MG CAPSULE PO PRN
[2018-06-21] MEDS ORDERED: DIPHENHYDRAMINE 25MG CAPSULE PO PRN
[2018-06-21] MEDS ORDERED: NA PHOS,M-B/NA PHOS,DI-BA ENEMA 118ML PR PRN
[2018-06-21] MEDS ORDERED: ONDANSETRON 4MG ODT PO PRN (00:45)
[2018-06-21] MEDS ORDERED: IPRATROPIUM/ALBUTEROL 0.5-3(2.5)MG/3ML NEB HHN PRN ×2 (01:30)
[2018-06-21] MEDS ORDERED: ACETAMINOPHEN 325MG TABLET PO PRN ×3 (01:30)
[2018-06-21 07:36] LABS: BASOPHILS % 0.9 % (0.0-2.0); EOSINOPHILS % 4.4 % (0.0-5.0); HEMATOCRIT. 27.5 % (36.0-48.0); LYMPHOCYTES % 23.3 % (20.0-50.0); MEAN CORPUSCULAR HEMOGLOBIN 28.8 pg (28.0-32.0); MEAN CORPUSCULAR VOLUME 87.8 fL (81.0-99.0); MEAN PLATELET VOLUME 8.3 fl (7.4-10.4); NEUTROPHILS % 59.4 % (40.0-76.0); PLATELET 251 x1000/uL (130-400); RED BLOOD CELL COUNT 3.13 mill/uL (4.2-5.4); RED CELL DISTRIBUTION WIDTH 17.6 % (11.6-14.6)
[2018-06-21 08:00] VITALS: BP 144/70
[2018-06-21] MEDS: ASPIRIN 81MG TABLET PO SCH (09:21)
[2018-06-21] MEDS: DOCUSATE SODIUM 250MG CAPSULE PO SCH (09:21)
[2018-06-21] MEDS: NIFEDIPINE XL 30MG TAB PO SCH ×2 (09:22→20:52)
[2018-06-21] MEDS: CARVEDILOL 12.5MG TABLET PO SCH ×2 (09:22→20:53)
[2018-06-21] MEDS: CLOPIDOGREL 75MG TABLET PO SCH (09:22)
[2018-06-21] MEDS: LOSARTAN POTASSIUM 100 MG TABLET PO SCH (09:22)
[2018-06-21] MEDS: FOLIC ACID/VITAMIN B COMP W-C TABLET PO SCH (09:22)
[2018-06-21] MEDS: CINACALCET HCL 30MG TABLET PO SCH (09:23)
[2018-06-21] MEDS: NICOTINE 14MG PATCH TD SCH (09:23)
[2018-06-21] MEDS: PANTOPRAZOLE 40MG DR TABLET PO SCH ×2 (09:23→16:48)
[2018-06-21 20:00] VITALS: BP_SYST 118; BP_SYST 127; BP_SYST 131; BP_DIAS 63; BP_DIAS 66
[2018-06-21] MEDS: ATORVASTATIN CALCIUM 40MG TABLET PO SCH (20:52)
[2018-06-22] MEDS: HYDROCODONE/ACETAMINOPHEN 5/325MG TABLET PO PRN (02:09)
[2018-06-22] MEDS: LACTULOSE 20G/30ML UDC PO PRN (06:35)
[2018-06-22 08:00] VITALS: BP 139/65
[2018-06-22 08:10] LABS: CHLORIDE 97 mEq/L (98-107)
[2018-06-22 08:16] LABS: PHOSPHORUS 4.5 mg/dL (2.5-4.9)
[2018-06-22 08:42] LABS: EOSINOPHILS % 4.1 % (0.0-5.0); HEMOGLOBIN. 9.5 g/dL (12.0-16.0); MEAN CORPUSCULAR HEMOGLOBIN 28.7 pg (28.0-32.0); MEAN CORPUSCULAR VOLUME 87.9 fL (81.0-99.0); MEAN PLATELET VOLUME 8.5 fl (7.4-10.4); MONOCYTES % 9.3 % (2.0-8.0); NEUTROPHILS % 58.6 % (40.0-76.0); PLATELET 261 x1000/uL (130-400); RED CELL DISTRIBUTION WIDTH 17.3 % (11.6-14.6)
[2018-06-22] MEDS: DOCUSATE SODIUM 250MG CAPSULE PO SCH (09:15)
[2018-06-22] MEDS: FOLIC ACID/VITAMIN B COMP W-C TABLET PO SCH (09:15)
[2018-06-22] MEDS: CARVEDILOL 12.5MG TABLET PO SCH ×2 (09:15→21:00)
[2018-06-22] MEDS: CINACALCET HCL 30MG TABLET PO SCH (09:15)
[2018-06-22] MEDS: ASPIRIN 81MG TABLET PO SCH (09:15)
[2018-06-22] MEDS: PANTOPRAZOLE 40MG DR TABLET PO SCH ×2 (09:15→17:27)
[2018-06-22] MEDS: LOSARTAN POTASSIUM 100 MG TABLET PO SCH (09:15)
[2018-06-22] MEDS: CLOPIDOGREL 75MG TABLET PO SCH (09:16)
[2018-06-22] MEDS: NIFEDIPINE XL 30MG TAB PO SCH ×2 (09:16→22:04)
[2018-06-22] MEDS: NICOTINE 14MG PATCH TD SCH (09:16)
[2018-06-22 20:00] VITALS: BP 116/61
[2018-06-22] MEDS: ATORVASTATIN CALCIUM 40MG TABLET PO SCH (20:59)
[2018-06-22] MEDS: EPOETIN ALFA 4000UNITS/ML VIAL SUBCUT SCH (22:04)
[2018-06-23 08:00] VITALS: BP 137/69
[2018-06-23] MEDS: LIDOCAINE HCL 4% CREAM 76GM TUBE TP SCH ×2 (09:00→17:00)
[2018-06-23] MEDS: LOSARTAN POTASSIUM 100 MG TABLET PO SCH (09:00)
[2018-06-23] MEDS: ASPIRIN 81MG TABLET PO SCH (09:25)
[2018-06-23] MEDS: HYDROCODONE/ACETAMINOPHEN 5/325MG TABLET PO PRN (09:28)
[2018-06-23] MEDS: FOLIC ACID/VITAMIN B COMP W-C TABLET PO SCH (09:29)
[2018-06-23] MEDS: PANTOPRAZOLE 40MG DR TABLET PO SCH ×2 (09:29→17:55)
[2018-06-23] MEDS: CLOPIDOGREL 75MG TABLET PO SCH (09:29)
[2018-06-23] MEDS: DOCUSATE SODIUM 250MG CAPSULE PO SCH (09:29)
[2018-06-23] MEDS: NIFEDIPINE XL 30MG TAB PO SCH (09:30)
[2018-06-23] MEDS: CINACALCET HCL 30MG TABLET PO SCH (09:30)
[2018-06-23] MEDS: CARVEDILOL 12.5MG TABLET PO SCH ×2 (09:31→22:22)
[2018-06-23] MEDS: NICOTINE 14MG PATCH TD SCH (09:33)
[2018-06-23 11:29] LABS: EOSINOPHILS % 4.3 % (0.0-5.0); HEMOGLOBIN. 9.5 g/dL (12.0-16.0); LYMPHOCYTES % 20.2 % (20.0-50.0); MEAN CORPUSCULAR HEMOGLOBIN 28.7 pg (28.0-32.0); MEAN CORPUSCULAR VOLUME 87.7 fL (81.0-99.0); MEAN PLATELET VOLUME 8.2 fl (7.4-10.4); MONOCYTES % 11.2 % (2.0-8.0); NEUTROPHILS % 63.3 % (40.0-76.0); PLATELET 279 x1000/uL (130-400); RED CELL DISTRIBUTION WIDTH 17.4 % (11.6-14.6)
[2018-06-23 12:21] LABS: FOLIC ACID (FOLATE) SERUM 12.9 ng/mL (>5.38)
[2018-06-23 20:00] VITALS: BP 128/65
[2018-06-23] MEDS: ATORVASTATIN CALCIUM 40MG TABLET PO SCH (22:21)
[2018-06-24] MEDS: NIFEDIPINE XL 30MG TAB PO SCH ×3 (00:20→21:19)
[2018-06-24 06:48] LABS: PHOSPHORUS 3.8 mg/dL (2.5-4.9)
[2018-06-24 07:00] VITALS: BP 139/68
[2018-06-24] MEDS: DOCUSATE SODIUM 250MG CAPSULE PO SCH (08:27)
[2018-06-24] MEDS: PANTOPRAZOLE 40MG DR TABLET PO SCH (08:27)
[2018-06-24] MEDS: CLOPIDOGREL 75MG TABLET PO SCH (08:27)
[2018-06-24] MEDS: FOLIC ACID/VITAMIN B COMP W-C TABLET PO SCH (08:27)
[2018-06-24] MEDS: ASPIRIN 81MG TABLET PO SCH (08:27)
[2018-06-24] MEDS: CINACALCET HCL 30MG TABLET PO SCH (08:28)
[2018-06-24] MEDS: NICOTINE 14MG PATCH TD SCH (08:28)
[2018-06-24] MEDS: CARVEDILOL 12.5MG TABLET PO SCH ×2 (08:30→21:20)
[2018-06-24] MEDS: LOSARTAN POTASSIUM 100 MG TABLET PO SCH (08:31)
[2018-06-24] MEDS: LIDOCAINE HCL 4% CREAM 76GM TUBE TP SCH ×2 (08:33→17:35)
[2018-06-24] MEDS ORDERED: FLUCONAZOLE 150MG TABLET PO SCH (11:00)
[2018-06-24 20:00] VITALS: BP 160/67
[2018-06-24] MEDS: ATORVASTATIN CALCIUM 40MG TABLET PO SCH (21:19)
[2018-06-24] MEDS: EPOETIN ALFA 4000UNITS/ML VIAL SUBCUT SCH (21:19)
[2018-06-24 21:20] VITALS: BP 158/68
[2018-06-24] MEDS: LACTULOSE 20G/30ML UDC PO PRN (21:20)
[2018-06-25 08:07] VITALS: BP 130/66
[2018-06-25] MEDS: LOSARTAN POTASSIUM 100 MG TABLET PO SCH (08:27)
[2018-06-25] MEDS: CLOPIDOGREL 75MG TABLET PO SCH (08:27)
[2018-06-25] MEDS: CINACALCET HCL 30MG TABLET PO SCH (08:27)
[2018-06-25] MEDS: DOCUSATE SODIUM 250MG CAPSULE PO SCH (08:27)
[2018-06-25] MEDS: FOLIC ACID/VITAMIN B COMP W-C TABLET PO SCH (08:28)
[2018-06-25] MEDS: ASPIRIN 81MG TABLET PO SCH (08:29)
[2018-06-25] MEDS: CARVEDILOL 12.5MG TABLET PO SCH ×2 (08:29→20:29)
[2018-06-25] MEDS: FAMOTIDINE 20MG TABLET PO SCH (08:30)
[2018-06-25] MEDS: NIFEDIPINE XL 30MG TAB PO SCH ×2 (08:30→20:29)
[2018-06-25] MEDS: NICOTINE 14MG PATCH TD SCH (08:37)
[2018-06-25] MEDS: LIDOCAINE HCL 4% CREAM 76GM TUBE TP SCH ×2 (09:00→19:00)
[2018-06-25 20:00] VITALS: BP 122/64
[2018-06-25] MEDS: ATORVASTATIN CALCIUM 40MG TABLET PO SCH (20:29)
[2018-06-26 06:45] LABS: BASOPHILS % 1.1 % (0.0-2.0); EOSINOPHILS % 3.1 % (0.0-5.0); HEMATOCRIT. 27.9 % (36.0-48.0); HEMOGLOBIN. 9.2 g/dL (12.0-16.0); LYMPHOCYTES % 31.4 % (20.0-50.0); MEAN CORPUSCULAR HEMOGLOBIN 28.9 pg (28.0-32.0); MEAN CORPUSCULAR VOLUME 87.6 fL (81.0-99.0); MEAN PLATELET VOLUME 8.1 fl (7.4-10.4); MONOCYTES % 11.7 % (2.0-8.0); NEUTROPHILS % 52.7 % (40.0-76.0); PLATELET 261 x1000/uL (130-400); RED BLOOD CELL COUNT 3.19 mill/uL (4.2-5.4); RED CELL DISTRIBUTION WIDTH 17.7 % (11.6-14.6)
[2018-06-26 07:02] LABS: CHLORIDE 97 mEq/L (98-107)
[2018-06-26 07:41] LABS: PHOSPHORUS 3.6 mg/dL (2.5-4.9)
[2018-06-26 08:00] VITALS: BP 122/56
[2018-06-26] MEDS: FOLIC ACID/VITAMIN B COMP W-C TABLET PO SCH (09:00)
[2018-06-26] MEDS: FAMOTIDINE 20MG TABLET PO SCH (09:00)
[2018-06-26] MEDS: ASPIRIN 81MG TABLET PO SCH (09:00)
[2018-06-26] MEDS: DOCUSATE SODIUM 250MG CAPSULE PO SCH (09:00)
[2018-06-26] MEDS: CINACALCET HCL 30MG TABLET PO SCH (09:00)
[2018-06-26] MEDS: LIDOCAINE HCL 4% CREAM 76GM TUBE TP SCH ×2 (09:00→17:54)
[2018-06-26] MEDS: LOSARTAN POTASSIUM 100 MG TABLET PO SCH (09:01)
[2018-06-26] MEDS: NIFEDIPINE XL 30MG TAB PO SCH ×2 (09:01→23:26)
[2018-06-26] MEDS: CARVEDILOL 12.5MG TABLET PO SCH ×2 (09:02→21:00)
[2018-06-26] MEDS: CLOPIDOGREL 75MG TABLET PO SCH (09:02)
[2018-06-26] MEDS: NICOTINE 14MG PATCH TD SCH (09:03)
[2018-06-26 20:00] VITALS: BP_SYST 120; BP_SYST 121; BP_DIAS 58; BP_DIAS 60; BP_DIAS 61
[2018-06-26] MEDS: ATORVASTATIN CALCIUM 40MG TABLET PO SCH (23:26)
[2018-06-27 06:58] LABS: BASOPHILS % 0.7 % (0.0-2.0); EOSINOPHILS % 3.8 % (0.0-5.0); HEMATOCRIT. 27.3 % (36.0-48.0); LYMPHOCYTES % 31.6 % (20.0-50.0); MEAN CORPUSCULAR HEMOGLOBIN 28.9 pg (28.0-32.0); MEAN CORPUSCULAR VOLUME 87.7 fL (81.0-99.0); MONOCYTES % 10.6 % (2.0-8.0); NEUTROPHILS % 53.3 % (40.0-76.0); PLATELET 254 x1000/uL (130-400); RED BLOOD CELL COUNT 3.12 mill/uL (4.2-5.4); RED CELL DISTRIBUTION WIDTH 18.2 % (11.6-14.6)
[2018-06-27 08:00] VITALS: BP 139/68
[2018-06-27] MEDS: CINACALCET HCL 30MG TABLET PO SCH (09:00)
[2018-06-27] MEDS: FOLIC ACID/VITAMIN B COMP W-C TABLET PO SCH (09:01)
[2018-06-27] MEDS: DOCUSATE SODIUM 250MG CAPSULE PO SCH (09:01)
[2018-06-27] MEDS: ASPIRIN 81MG TABLET PO SCH (09:01)
[2018-06-27] MEDS: LOSARTAN POTASSIUM 100 MG TABLET PO SCH (09:01)
[2018-06-27] MEDS: FAMOTIDINE 20MG TABLET PO SCH (09:01)
[2018-06-27] MEDS: CARVEDILOL 12.5MG TABLET PO SCH ×2 (09:01→21:15)
[2018-06-27] MEDS: CLOPIDOGREL 75MG TABLET PO SCH (09:01)
[2018-06-27] MEDS: NIFEDIPINE XL 30MG TAB PO SCH ×2 (09:02→21:15)
[2018-06-27] MEDS: NICOTINE 14MG PATCH TD SCH (09:03)
[2018-06-27] MEDS: LIDOCAINE HCL 4% CREAM 76GM TUBE TP SCH ×2 (09:03→17:00)
[2018-06-27 20:00] VITALS: BP 136/63
[2018-06-27] MEDS: EPOETIN ALFA 4000UNITS/ML VIAL SUBCUT SCH (21:14)
[2018-06-27] MEDS: ATORVASTATIN CALCIUM 40MG TABLET PO SCH (21:15)
[2018-06-28 06:29] LABS: EOSINOPHILS % 3.4 % (0.0-5.0); HEMATOCRIT. 25.5 % (36.0-48.0); HEMOGLOBIN. 8.4 g/dL (12.0-16.0); LYMPHOCYTES % 26.6 % (20.0-50.0); MEAN CORPUSCULAR HEMOGLOBIN 28.9 pg (28.0-32.0); MEAN CORPUSCULAR VOLUME 87.9 fL (81.0-99.0); MONOCYTES % 8.9 % (2.0-8.0); NEUTROPHILS % 60.1 % (40.0-76.0); PLATELET 247 x1000/uL (130-400); RED CELL DISTRIBUTION WIDTH 17.9 % (11.6-14.6)
[2018-06-28 07:21] LABS: PHOSPHORUS 3.2 mg/dL (2.5-4.9)
[2018-06-28 08:00] VITALS: BP 139/67
[2018-06-28] MEDS: NICOTINE 14MG PATCH TD SCH (08:10)
[2018-06-28] MEDS: LIDOCAINE HCL 4% CREAM 76GM TUBE TP SCH ×2 (08:10→16:02)
[2018-06-28] MEDS: DOCUSATE SODIUM 250MG CAPSULE PO SCH (08:11)
[2018-06-28] MEDS: LOSARTAN POTASSIUM 100 MG TABLET PO SCH (08:11)
[2018-06-28] MEDS: CINACALCET HCL 30MG TABLET PO SCH (08:11)
[2018-06-28] MEDS: ASPIRIN 81MG TABLET PO SCH (08:11)
[2018-06-28] MEDS: CLOPIDOGREL 75MG TABLET PO SCH (08:11)
[2018-06-28] MEDS: FAMOTIDINE 20MG TABLET PO SCH (08:11)
[2018-06-28] MEDS: FOLIC ACID/VITAMIN B COMP W-C TABLET PO SCH (08:11)
[2018-06-28] MEDS: NIFEDIPINE XL 30MG TAB PO SCH ×2 (08:13→21:24)
[2018-06-28] MEDS: CARVEDILOL 12.5MG TABLET PO SCH ×2 (08:13→21:24)
[2018-06-28 20:00] VITALS: BP 130/66
[2018-06-28] MEDS: ATORVASTATIN CALCIUM 40MG TABLET PO SCH (21:23)
[2018-06-29 07:12] LABS: BASOPHILS % 0.8 % (0.0-2.0); EOSINOPHILS % 3.6 % (0.0-5.0); HEMOGLOBIN. 8.8 g/dL (12.0-16.0); LYMPHOCYTES % 22.2 % (20.0-50.0); MEAN CORPUSCULAR HEMOGLOBIN 28.7 pg (28.0-32.0); MEAN CORPUSCULAR VOLUME 88.1 fL (81.0-99.0); MEAN PLATELET VOLUME 8.1 fl (7.4-10.4); MONOCYTES % 7.2 % (2.0-8.0); NEUTROPHILS % 66.2 % (40.0-76.0); PLATELET 247 x1000/uL (130-400); RED BLOOD CELL COUNT 3.06 mill/uL (4.2-5.4); RED CELL DISTRIBUTION WIDTH 17.8 % (11.6-14.6)
[2018-06-29 07:38] LABS: PHOSPHORUS 3.2 mg/dL (2.5-4.9)
[2018-06-29 08:00] VITALS: BP 147/75
[2018-06-29] MEDS: DOCUSATE SODIUM 250MG CAPSULE PO SCH (08:15)
[2018-06-29] MEDS: FOLIC ACID/VITAMIN B COMP W-C TABLET PO SCH (08:16)
[2018-06-29] MEDS: CINACALCET HCL 30MG TABLET PO SCH (08:16)
[2018-06-29] MEDS: ASPIRIN 81MG TABLET PO SCH (08:16)
[2018-06-29] MEDS: CLOPIDOGREL 75MG TABLET PO SCH (08:16)
[2018-06-29] MEDS: FAMOTIDINE 20MG TABLET PO SCH (08:16)
[2018-06-29] MEDS: NICOTINE 14MG PATCH TD SCH (08:18)
[2018-06-29] MEDS: CARVEDILOL 12.5MG TABLET PO SCH ×2 (08:22→21:56)
[2018-06-29] MEDS: LIDOCAINE HCL 4% CREAM 76GM TUBE TP SCH ×2 (08:22→16:05)
[2018-06-29] MEDS: NIFEDIPINE XL 30MG TAB PO SCH ×2 (08:23→21:55)
[2018-06-29] MEDS: LOSARTAN POTASSIUM 100 MG TABLET PO SCH (08:23)
[2018-06-29 19:09] LABS: 25-HYDROXY VITAMIN D3 9.2 ng/mL (.)
[2018-06-29 20:00] VITALS: BP 157/70
[2018-06-29] MEDS: EPOETIN ALFA 4000UNITS/ML VIAL SUBCUT SCH (21:54)
[2018-06-29] MEDS: ATORVASTATIN CALCIUM 40MG TABLET PO SCH (21:54)
[2018-06-30 06:59] VITALS: BP 128/65
[2018-06-30] MEDS: LIDOCAINE HCL 4% CREAM 76GM TUBE TP SCH (08:35)
[2018-06-30] MEDS: NICOTINE 14MG PATCH TD SCH (08:35)
[2018-06-30] MEDS: NIFEDIPINE XL 30MG TAB PO SCH (08:36)
[2018-06-30] MEDS: CINACALCET HCL 30MG TABLET PO SCH (08:36)
[2018-06-30] MEDS: CLOPIDOGREL 75MG TABLET PO SCH (08:36)
[2018-06-30] MEDS: FOLIC ACID/VITAMIN B COMP W-C TABLET PO SCH (08:36)
[2018-06-30] MEDS: FAMOTIDINE 20MG TABLET PO SCH (08:36)
[2018-06-30] MEDS: ASPIRIN 81MG TABLET PO SCH (08:36)
[2018-06-30] MEDS: CARVEDILOL 12.5MG TABLET PO SCH (08:37)
[2018-06-30] MEDS: DOCUSATE SODIUM 250MG CAPSULE PO SCH (08:40)
[2018-06-30 09:50] VITALS: BP 116/62
[2018-06-30] MEDS: LOSARTAN POTASSIUM 100 MG TABLET PO SCH (09:56)
[2018-06-30 11:00] VITALS: BP 119/61
[2018-06-30 11:27] VITALS: BP 119/61
== END 2018-06-30 12:55 | disposition home health service (06) | DRG 947 ==
PROVIDERS: ADMIT Physical Medicine & Rehabilitation Spinal Cord Injury Medicine; ATTEND Internal Medicine
PROC: 5A1D70Z Performance of Urinary Filtration, Intermittent, Less than 6 Hours Per Day (ICD-10-PCS; principal; 2018-06-22)
PROC: 0HBRXZZ Excision of Toe Nail, External Approach (ICD-10-PCS; 2018-06-22)
PROC: 0HBRXZZ Excision of Toe Nail, External Approach (ICD-10-PCS; 2018-06-22)
PROC: 0HBRXZZ Excision of Toe Nail, External Approach (ICD-10-PCS; 2018-06-22)
PROC: 0HBRXZZ Excision of Toe Nail, External Approach (ICD-10-PCS; 2018-06-22)
PROC: 0HBRXZZ Excision of Toe Nail, External Approach (ICD-10-PCS; 2018-06-22)
PROC: 0HBRXZZ Excision of Toe Nail, External Approach (ICD-10-PCS; 2018-06-22)
PROC: 0HBRXZZ Excision of Toe Nail, External Approach (ICD-10-PCS; 2018-06-22)
PROC: 0HBRXZZ Excision of Toe Nail, External Approach (ICD-10-PCS; 2018-06-22)
PROC: 0HBRXZZ Excision of Toe Nail, External Approach (ICD-10-PCS; 2018-06-22)
PROC: 0HBRXZZ Excision of Toe Nail, External Approach (ICD-10-PCS; 2018-06-22)
PROC: 5A1D70Z Performance of Urinary Filtration, Intermittent, Less than 6 Hours Per Day (ICD-10-PCS; 2018-06-24)
PROC: 5A1D70Z Performance of Urinary Filtration, Intermittent, Less than 6 Hours Per Day (ICD-10-PCS; 2018-06-27)
PROC: 5A1D70Z Performance of Urinary Filtration, Intermittent, Less than 6 Hours Per Day (ICD-10-PCS; 2018-06-29)
DX: R53.81 Other malaise (principal); I21.4 Non-ST elevation (NSTEMI) myocardial infarction; N18.6 End stage renal disease; I50.43 Acute on chronic combined systolic (congestive) and diastolic (congestive) heart failure; E43 Unspecified severe protein-calorie malnutrition; I25.42 Coronary artery dissection; I13.2 Hypertensive heart and chronic kidney disease with heart failure and with stage 5 chronic kidney disease, or end stage renal disease; I69.354 Hemiplegia and hemiparesis following cerebral infarction affecting left non-dominant side; E87.1 Hypo-osmolality and hyponatremia; J44.9 Chronic obstructive pulmonary disease, unspecified; R13.10 Dysphagia, unspecified; E78.00 Pure hypercholesterolemia, unspecified; E11.22 Type 2 diabetes mellitus with diabetic chronic kidney disease; R26.9 Unspecified abnormalities of gait and mobility; D63.8 Anemia in other chronic diseases classified elsewhere; E78.5 Hyperlipidemia, unspecified; F17.210 Nicotine dependence, cigarettes, uncomplicated; E83.39 Other disorders of phosphorus metabolism; N89.8 Other specified noninflammatory disorders of vagina; L60.0 Ingrowing nail; B35.1 Tinea unguium; E87.8 Other disorders of electrolyte and fluid balance, not elsewhere classified; L60.3 Nail dystrophy; M21.372 Foot drop, left foot; Z99.2 Dependence on renal dialysis; Z90.49 Acquired absence of other specified parts of digestive tract; Z88.8 Allergy status to other drugs, medicaments and biological substances; Z79.899 Other long term (current) drug therapy; Z79.82 Long term (current) use of aspirin; Z82.49 Family history of ischemic heart disease and other diseases of the circulatory system; Z68.27 Body mass index [BMI] 27.0-27.9, adult
CPT/HCPCS: 36415; 71045; 80048; 80053; 80061; 82270; 82306; 82607; 82728; 82746; 83036; 83540; 83550; 83735; 84100; 84134; 84443; 84630; 85025; 92523; 92610; 93923; 93970; 97110; 97112; 97116; 97162; 97166; 97530; 97535; G0515; J0885; J2270; J7030

== ENCOUNTER 2019-03-01 06:32 | Day surgery (SDC) | payer MEDICARE, MEDICAID ==
[~2019-03-01] VITALS: Ht 160 cm; Wt 72.6 kg
[2019-03-01] MEDS ORDERED: CLOP75TA16 PO (08:08)
[2019-03-01] MEDS ORDERED: COR12 PO (08:08)
[2019-03-01] MEDS ORDERED: auryxia (08:08)
[2019-03-01] MEDS ORDERED: FAMO-135 PO (08:08)
[2019-03-01] MEDS ORDERED: ONDANSETRON HCL 4MG/2ML INJ IV PRN (09:45)
[2019-03-01] MEDS ORDERED: ATROPINE SULFATE 1MG/10ML SYR IV PRN (09:45)
[2019-03-01] MEDS ORDERED: ACETAMINOPHEN 325MG TABLET PO PRN (09:45)
[2019-03-01] MEDS ORDERED: HEPARIN SODIUM 1,000 UNIT/1ML VIAL IV ONE (15:46)
== END 2019-03-01 15:00 | disposition home or self-care (01) ==
LOC: CCL 06:32
PROVIDERS: ATTEND Specialist
DX: I70.213 Atherosclerosis of native arteries of extremities with intermittent claudication, bilateral legs (principal); I12.0 Hypertensive chronic kidney disease with stage 5 chronic kidney disease or end stage renal disease; N18.6 End stage renal disease; E78.5 Hyperlipidemia, unspecified; Z79.82 Long term (current) use of aspirin; Z99.2 Dependence on renal dialysis; Z79.899 Other long term (current) drug therapy
CPT/HCPCS: 36246; 75710; 82962; 99152; 99153; C1760; C1769; C1887; C1893; C1894; J1644; G0500

== ENCOUNTER 2019-03-08 06:25 | Inpatient (IN) | payer MEDICARE, MEDICAID ==
[~2019-03-08] VITALS: Ht 160 cm; Wt 78.0 kg
[~2019-03-08 06:25] MED LIST changes: +CLOP75TA16 PO; +COR12 PO; +FAMO-135 PO; +auryxia
[2019-03-08 07:55] LABS: HEMATOCRIT 31.7 % (36.0-48.0); HEMOGLOBIN 10.3 g/dL (12.0-16.0); MEAN CORPUSCULAR HEMOGLOBIN 32.3 pg (28.0-32.0); PLATELET 242 x1000/uL (130-400); RED CELL DISTRIBUTION WIDTH 16.5 % (11.6-14.6)
[2019-03-08] MEDS ORDERED: IOHEXOL-300 100 ML BOTTLE ONE (08:07)
[2019-03-08] MEDS ORDERED: LIDOCAINE HCL 1% 20ML VIAL (Pyxis) INJ ONE (08:08)
[2019-03-08] MEDS ORDERED: IODIXANOL 320MG/ML 100 ML BOTTLE IV ONE (08:08)
[2019-03-08] MEDS ORDERED: MIDAZOLAM HCL 2 MG/2 ML VIAL ONE (08:41)
[2019-03-08] MEDS ORDERED: FENTANYL CITRATE/PF 50MCG/ML 2ML VIAL ONE (08:41)
[2019-03-08] MEDS ORDERED: HEPARIN SODIUM 1,000 UNIT/1ML VIAL IV ONE (09:59)
[2019-03-08] MEDS ORDERED: ATROPINE SULFATE 1MG/10ML SYR IV PRN (10:30)
[2019-03-08] MEDS ORDERED: ONDANSETRON HCL 4MG/2ML INJ IV PRN (10:30)
[2019-03-08] MEDS ORDERED: ACETAMINOPHEN 325MG TABLET PO PRN (10:30)
[2019-03-08] MEDS ORDERED: MORPHINE SULFATE 4 MG/ML CPJ (NOT FOR IM USE) IV SCH (15:00)
[2019-03-08] MEDS ORDERED: MORPHINE SULFATE 4 MG/ML CPJ (NOT FOR IM USE) IV PRN (15:15)
[2019-03-08] MEDS ORDERED: CINACALCET HCL 30MG TABLET PO SCH ×2 (17:20→18:00)
[2019-03-08 20:00] VITALS: BP 154/64
[2019-03-08 20:34] VITALS: BP 148/61
[2019-03-08] MEDS ORDERED: ATORVASTATIN CALCIUM 40MG TABLET PO SCH (21:00)
[2019-03-08] MEDS ORDERED: FAMOTIDINE 20MG TABLET PO SCH (21:00)
[2019-03-08 22:00] VITALS: BP 174/66
[2019-03-08] MEDS ORDERED: CLONIDINE 0.1MG TABLET PO PRN (22:30)
[2019-03-08 23:00] VITALS: BP 152/60
[2019-03-09] VITALS (8 sets, daily range): BP systolic 144–179; BP diastolic 58–84
[2019-03-09 05:26] LABS: BASOPHILS % 0.6 % (0.0-2.0); EOSINOPHILS % 4.9 % (0.0-5.0); HEMATOCRIT. 26.4 % (36.0-48.0); HEMOGLOBIN. 8.8 g/dL (12.0-16.0); LYMPHOCYTES % 22.1 % (20.0-50.0); MEAN CORPUSCULAR HEMOGLOBIN 32.5 pg (28.0-32.0); MEAN CORPUSCULAR VOLUME 97.6 fL (81.0-99.0); MONOCYTES % 8.7 % (2.0-8.0); NEUTROPHILS % 63.7 % (40.0-76.0); PLATELET 207 x1000/uL (130-400)
[2019-03-09 06:56] LABS: PHOSPHORUS 4.2 mg/dL (2.5-4.9)
[2019-03-09] MEDS ORDERED: FOLIC ACID/VITAMIN B COMP W-C TABLET PO SCH (09:00)
[2019-03-09] MEDS ORDERED: LOSARTAN POTASSIUM 100 MG TABLET PO SCH (09:00)
[2019-03-09] MEDS ORDERED: POTASSIUM CHLORIDE 20MEQ TABLET SR PO NR (11:15)
== END 2019-03-09 12:05 | disposition home health service (06) | DRG 299 ==
LOC: CCL 06:25 → 3WST 19:56
PROVIDERS: ADMIT Specialist; ATTEND Specialist
PROC: B41G1ZZ Fluoroscopy of Left Lower Extremity Arteries using Low Osmolar Contrast (ICD-10-PCS; principal; 2019-03-08)
PROC: 5A1D70Z Performance of Urinary Filtration, Intermittent, Less than 6 Hours Per Day (ICD-10-PCS; 2019-03-09)
DX: E11.51 Type 2 diabetes mellitus with diabetic peripheral angiopathy without gangrene (principal); N18.6 End stage renal disease; I13.2 Hypertensive heart and chronic kidney disease with heart failure and with stage 5 chronic kidney disease, or end stage renal disease; I47.2 Ventricular tachycardia; I69.354 Hemiplegia and hemiparesis following cerebral infarction affecting left non-dominant side; N25.81 Secondary hyperparathyroidism of renal origin; I50.22 Chronic systolic (congestive) heart failure; E46 Unspecified protein-calorie malnutrition; D64.9 Anemia, unspecified; E11.22 Type 2 diabetes mellitus with diabetic chronic kidney disease; E78.5 Hyperlipidemia, unspecified; E83.52 Hypercalcemia; E87.6 Hypokalemia; I25.10 Atherosclerotic heart disease of native coronary artery without angina pectoris; I34.0 Nonrheumatic mitral (valve) insufficiency; I49.3 Ventricular premature depolarization; M19.90 Unspecified osteoarthritis, unspecified site; J44.9 Chronic obstructive pulmonary disease, unspecified; K21.9 Gastro-esophageal reflux disease without esophagitis; Z82.49 Family history of ischemic heart disease and other diseases of the circulatory system; Z98.61 Coronary angioplasty status; Z99.2 Dependence on renal dialysis; I25.2 Old myocardial infarction; Z90.49 Acquired absence of other specified parts of digestive tract; Z68.30 Body mass index [BMI] 30.0-30.9, adult
CPT/HCPCS: 36246; 36415; 75710; 80048; 84100; 85027; 85347; C1760; C1769; C1887; C1893; C1894; J1644; J2250; J3010; J3490; J7050; Q9967

== ENCOUNTER 2019-10-11 05:35 | Day surgery (SDC) | payer MEDICARE, MEDICAID ==
[~2019-10-11] VITALS: Ht 162.6 cm; Wt 70.8 kg
[~2019-10-11 05:35] MED LIST changes: -ASPI-1159 PO; +ASPI-1393 PO; -CLOP75TA16 PO; +CLOP75TA4 PO; -LOSA25TA12 MT; +LOSA25TA26 MT
[2019-10-11] MEDS ORDERED: LETR2.5T6 PO (08:45)
[2019-10-11] MEDS ORDERED: ATOR40TA70 PO (08:45)
[2019-10-11] MEDS ORDERED: FOLI0.8T23 PO (08:45)
[2019-10-11] MEDS ORDERED: [UNRECOGNIZED DRUG - OTHER] PO (08:45)
[2019-10-11] MEDS ORDERED: SKIN ADHESIVE 0.7 GM EA TOP ONE (09:24)
[2019-10-11] MEDS ORDERED: METHYLENE BLUE 50 MG/10 ML AMP IV ONE (09:24)
[2019-10-11] MEDS ORDERED: BUPIVACAINE HCL 0.5% (5MG/ML) 50ML ONE (09:24)
[2019-10-11] MEDS ORDERED: FENTANYL CITRATE/PF 50MCG/ML 2ML VIAL ONE (10:36)
[2019-10-11] MEDS ORDERED: MIDAZOLAM HCL 2 MG/2 ML VIAL ONE (10:37)
[2019-10-11] MEDS ORDERED: ROCURONIUM BROMIDE 10MG/ML VIAL 5ML IV ONE (10:43)
[2019-10-11] MEDS ORDERED: SODIUM CHLORIDE 0.9% 10ML VIAL ONE (10:44)
[2019-10-11] MEDS ORDERED: EPHEDRINE SULFATE 50MG/ML VIAL ONE (10:44)
[2019-10-11] MEDS ORDERED: ESMOLOL HCL 10MG/ML 10ML VIAL IV ONE (10:45)
[2019-10-11] MEDS ORDERED: PHENYLEPHRINE HCL 10 MG/ML 1ML (IV VIAL) IV ONE (10:46)
[2019-10-11] MEDS ORDERED: LIDOCAINE HCL 1% 20ML VIAL (Pyxis) INJ ONE (10:50)
[2019-10-11] MEDS ORDERED: PROPOFOL 200MG/20ML VIAL IV ONE (10:50)
[2019-10-11] MEDS ORDERED: NITROGLYCERIN 0.4MG/HR PATCH TOP SCH (11:00)
[2019-10-11] MEDS ORDERED: GLYCOPYRROLATE 0.2 MG/ML 2ML VIAL ONE (11:41)
[2019-10-11] MEDS ORDERED: DEXAMETHASONE 4MG/ML 1ML VIAL ONE (11:45)
[2019-10-11] MEDS ORDERED: HYDRALAZINE 20MG/ML VIAL ONE (12:34)
[2019-10-11] MEDS: HYDROMORPHONE HCL/PF 2MG/ML CPJ IV PRN ×3 (13:47→15:51)
[2019-10-11 15:51] VITALS: BP 168/77
== END 2019-10-11 16:35 | disposition home or self-care (01) ==
LOC: OR 05:35
PROVIDERS: ATTEND Surgery
DX: C50.012 Malignant neoplasm of nipple and areola, left female breast (principal); I12.0 Hypertensive chronic kidney disease with stage 5 chronic kidney disease or end stage renal disease; N18.6 End stage renal disease; E78.5 Hyperlipidemia, unspecified; I25.10 Atherosclerotic heart disease of native coronary artery without angina pectoris; Z79.82 Long term (current) use of aspirin; Z79.899 Other long term (current) drug therapy; Z88.8 Allergy status to other drugs, medicaments and biological substances; Z87.891 Personal history of nicotine dependence; Z83.3 Family history of diabetes mellitus; Z98.890 Other specified postprocedural states; Z95.5 Presence of coronary angioplasty implant and graft
CPT/HCPCS: 19083; 36415; 36573; 38525; 76937; 80048; 88307; 88309; 88331; C1725; C1893; J0360; J1100; J1170; J2370; J2704; J3010; J3490; J7040; Q9968; J2250

== ENCOUNTER 2020-11-29 01:59 | Inpatient (IN) | payer MEDICARE, MEDICAID ==
[~2020-11-29] VITALS: Ht 154.9 cm; Wt 82.0 kg
[~2020-11-29 01:59] MED LIST changes: -ASPI-1393 PO; +ASPI-1497 PO; +ATOR40TA70 PO; +FOLI0.8T23 PO; +LETR2.5T7 PO; +[UNRECOGNIZED DRUG - OTHER] PO
[2020-11-29] MEDS ORDERED: MORPHINE SULFATE 4 MG/ML CPJ (NOT FOR IM USE) IV STA (02:35)
[2020-11-29] MEDS ORDERED: ONDANSETRON HCL 4MG/2ML INJ IV STA (02:35)
[2020-11-29] MEDS ORDERED: SODIUM CHLORIDE 0.9% 1,000 ML IV ONE (02:45)
[2020-11-29 03:41] LABS: BASOPHILS % 0.5 % (0.0-2.0); EOSINOPHILS % 0.6 % (0.0-5.0); HEMATOCRIT. 28.4 % (36.0-48.0); HEMOGLOBIN. 8.9 g/dL (12.0-16.0); LYMPHOCYTES % 24.3 % (20.0-50.0); MEAN CORPUSCULAR HEMOGLOBIN 30.3 pg (28.0-32.0); MEAN CORPUSCULAR VOLUME 96.2 fL (81.0-99.0); MEAN PLATELET VOLUME 8.9 fl (7.4-10.4); MONOCYTES % 5.5 % (2.0-8.0); NEUTROPHILS % 69.1 % (40.0-76.0); PLATELET 207 x1000/uL (130-400); RED BLOOD CELL COUNT 2.95 mill/uL (4.2-5.4); RED CELL DISTRIBUTION WIDTH 17.3 % (11.6-14.6)
[2020-11-29 03:42] LABS: CHLORIDE 93 mEq/L (98-107)
[2020-11-29 03:47] LABS: D-DIMER 0.86 mg/L FEU (<0.50); INR 1.1; PROTHROMBIN TIME 11.9 sec (9.6-11.0)
[2020-11-29] MEDS ORDERED: IOHEXOL-350 100 ML BOTTLE ONE ×2 (04:08→23:36)
[2020-11-29] MEDS ORDERED: IPRATROPIUM/ALBUTEROL 0.5-3(2.5)MG/3ML NEB NEB PRN (07:15)
[2020-11-29] MEDS ORDERED: NITROGLYCERIN 0.4MG TABLET SL SL PRN (07:15)
[2020-11-29] MEDS ORDERED: TRAMADOL 50MG TABLET PO PRN (07:15)
[2020-11-29] MEDS ORDERED: DOCUSATE SODIUM 100MG CAPSULE PO PRN (07:15)
[2020-11-29] MEDS ORDERED: ONDANSETRON HCL 4MG/2ML INJ IV PRN (07:15)
[2020-11-29] MEDS ORDERED: MAGNESIUM/ALUMINUM HYDROXIDE/SIMETHICONE 30ML UDC PO PRN (07:15)
[2020-11-29] MEDS ORDERED: PIPERACILLIN/TAZ 3.375G PREMIX 50 ML IV SCH (07:15)
[2020-11-29] MEDS ORDERED: ACETAMINOPHEN 325MG TABLET PO PRN ×2 (07:15)
[2020-11-29] MEDS ORDERED: CLONIDINE 0.1MG TABLET PO PRN (07:15)
[2020-11-29] MEDS ORDERED: GUAIFENESIN 200MG/10ML SUGAR FREE UDC PO PRN (07:15)
[2020-11-29] MEDS ORDERED: PIPERACILLIN/TAZOBACTAM 2.25 G in DEXTROSE 5% WATER 50 ML IV SCH (08:00)
[2020-11-29] MEDS ORDERED: VANCOMYCIN 1500MG in DEXTROSE 5% WATER 250ML IV NR (08:30)
[2020-11-29] MEDS ORDERED: ENOXAPARIN 30MG/0.3ML SYR SUBCUT SCH (09:00)
[2020-11-29] MEDS ORDERED: ASPIRIN 325MG EC TABLET PO SCH (09:00)
[2020-11-29] MEDS ORDERED: ZINC SULFATE 220 MG ( 50 ) CAPSULE PO SCH (09:00)
[2020-11-29] MEDS ORDERED: FAMOTIDINE 20MG TABLET PO SCH (09:00)
[2020-11-29] MEDS ORDERED: ASCORBIC ACID 500 MG TABLET PO SCH (09:00)
[2020-11-29] MEDS ORDERED: GUAIFENESIN/DM 600MG/30MG ER TAB 12HR PO SCH (09:00)
[2020-11-29] MEDS ORDERED: CLOPIDOGREL 75MG TABLET PO SCH (09:00)
[2020-11-29 09:56] LABS: T4 FREE 1.44 ng/dL (0.76-1.46)
[2020-11-29] MEDS ORDERED: DEXTROSE 50% WATER 50ML SYRINGE IV PRN (10:30)
[2020-11-29 11:59] LABS: FOLIC ACID (FOLATE) SERUM 8.3 ng/mL (>5.38)
[2020-11-29] MEDS ORDERED: OMEPRAZOLE 20MG CAPSULE EXTENDED RELEASE PO SCH (12:30)
[2020-11-29] MEDS: BLOOD SUGAR DIAGNOSTIC STRIP TEST SCH ×3 (13:00→21:00)
[2020-11-29] MEDS ORDERED: INSULIN LISPRO 100 UNITS/ML SUBCUT SCH (13:20)
[2020-11-29] MEDS ORDERED: SODIUM CHLORIDE 0.9% 500 ML IV ONE (16:00)
[2020-11-29 17:35] LABS: HEMATOCRIT 25.2 % (36.0-48.0); HEMOGLOBIN 8.2 g/dL (12.0-16.0)
[2020-11-29 17:47] LABS: CREATINE KINASE MB FRACTION 4.9 ng/mL (0.5-3.6)
[2020-11-29] MEDS ORDERED: NOREPINEPHRINE 8 MG in SODIUM CHLORIDE 0.9% 242 ML IV PRN ×4 (19:15)
[2020-11-29] MEDS ORDERED: FENTANYL CITRATE/PF 500 MCG in SODIUM CHLORIDE 0.9% 40 ML IV PRN ×2 (19:30→21:00)
[2020-11-29] MEDS ORDERED: MIDAZOLAM HCL 100 MG in DEXT 5% WATER 80 ML IV ONE ×2 (19:30→22:30)
[2020-11-29] MEDS ORDERED: ATORVASTATIN CALCIUM 20MG TABLET PO SCH (21:00)
[2020-11-29] MEDS ORDERED: ZOLPIDEM TARTRATE 5MG TABLET PO PRN (21:00)
[2020-11-29] MEDS ORDERED: FENTANYL CITRATE 2,500 MCG in SODIUM CHLORIDE 0.9% 200 ML IV PRN (21:15)
[2020-11-29 23:19] LABS: CREATINE KINASE MB FRACTION 12.2 ng/mL (0.5-3.6)
[2020-11-30] VITALS: BP 81/36
[2020-11-30] MEDS ORDERED: LIDOCAINE HCL 1% 20ML VIAL (Pyxis) INJ ONE (08:16)
[2020-11-30] MEDS ORDERED: FOLIC ACID/VITAMIN B COMP W-C TABLET PO SCH (09:00)
== END 2020-11-30 00:40 | disposition expired | DRG 871 ==
LOC: ER 01:59 → MICUSO 06:11 → SUPCPDRO 06:59 → EDBEDREQTM 19:29 → EDBEDREQSVC 22:02
PROVIDERS: ADMIT Internal Medicine; ATTEND Internal Medicine
PROC: 5A1935Z Respiratory Ventilation, Less than 24 Consecutive Hours (ICD-10-PCS; principal; 2020-11-29)
PROC: 5A12012 Performance of Cardiac Output, Single, Manual (ICD-10-PCS; 2020-11-29)
PROC: 0BH17EZ Insertion of Endotracheal Airway into Trachea, Via Natural or Artificial Opening (ICD-10-PCS; 2020-11-29)
PROC: 5A1D70Z Performance of Urinary Filtration, Intermittent, Less than 6 Hours Per Day (ICD-10-PCS; 2020-11-30)
DX: A41.9 Sepsis, unspecified organism (principal); J18.9 Pneumonia, unspecified organism; I21.4 Non-ST elevation (NSTEMI) myocardial infarction; N18.6 End stage renal disease; E43 Unspecified severe protein-calorie malnutrition; I13.2 Hypertensive heart and chronic kidney disease with heart failure and with stage 5 chronic kidney disease, or end stage renal disease; E87.2 Acidosis; E87.1 Hypo-osmolality and hyponatremia; I12.0 Hypertensive chronic kidney disease with stage 5 chronic kidney disease or end stage renal disease; R65.20 Severe sepsis without septic shock; E11.22 Type 2 diabetes mellitus with diabetic chronic kidney disease; E03.9 Hypothyroidism, unspecified; E78.00 Pure hypercholesterolemia, unspecified; E78.5 Hyperlipidemia, unspecified; I25.10 Atherosclerotic heart disease of native coronary artery without angina pectoris; I50.9 Heart failure, unspecified; I95.3 Hypotension of hemodialysis; J44.9 Chronic obstructive pulmonary disease, unspecified; I46.9 Cardiac arrest, cause unspecified; E21.1 Secondary hyperparathyroidism, not elsewhere classified; E11.51 Type 2 diabetes mellitus with diabetic peripheral angiopathy without gangrene; D63.1 Anemia in chronic kidney disease; G62.9 Polyneuropathy, unspecified; Z20.828 Contact with and (suspected) exposure to other viral communicable diseases; E21.3 Hyperparathyroidism, unspecified; Z86.73 Personal history of transient ischemic attack (TIA), and cerebral infarction without residual deficits; Z99.2 Dependence on renal dialysis; I25.2 Old myocardial infarction; Z85.3 Personal history of malignant neoplasm of breast; Z90.10 Acquired absence of unspecified breast and nipple; Z92.3 Personal history of irradiation; Z95.5 Presence of coronary angioplasty implant and graft; Z88.8 Allergy status to other drugs, medicaments and biological substances; Z79.2 Long term (current) use of antibiotics; Z79.899 Other long term (current) drug therapy; Z79.82 Long term (current) use of aspirin; Z68.34 Body mass index [BMI] 34.0-34.9, adult; Z82.49 Family history of ischemic heart disease and other diseases of the circulatory system; Z79.811 Long term (current) use of aromatase inhibitors
CPT/HCPCS: 36415; 71045; 71275; 74174; 80048; 80053; 80061; 82550; 82553; 82607; 82746; 82962; 83036; 83540; 83550; 83605; 83880; 84439; 84443; 84484; 85014; 85018; 85025; 85379; 86850; 86900; 87635; 93005; 99291; J1650; J2250; J2270; J2405; J2543; J3010; J3370; J3490; J7030; J7050; J7060; Q9967